=== PATIENT | male | born 1990 | race Hispanic/Latino ===

== ENCOUNTER 2018-05-22 11:32 | Emergency (ER) | payer OTHER ==
[2018-05-22 11:49] VITALS: RESP 18
--- NOTE | 2018-05-22 12:15 | C.PDOC ---
History Of Present Illness 27 y/o male w/o significant PMHx comes in for evaluation of right ankle pain radiating to the right calf area developed since yesterday. Patient reports he was playing basketball when he jumped and landed wrong, probably twisting the ankle. He was seen in urgent care yesterday and given a prescription for MRI but did not have the imaging yet. Otherwise patient denies any obvious deformity , weakness, or sensorivascular deficits. Patient admits he is able to bear weight on the injured foot. Posterior fiber glass splint noted to right lower extremity on arrival. Time Seen by Provider: 05/22/18 11:50 Chief Complaint (Nursing): Lower Extremity Problem/Injury History Per: Patient History/Exam Limitations: no limitations Onset/Duration Of Symptoms: Days Current Symptoms Are (Timing): Still Present Severity: Moderate Pain Scale Rating Of: 5 - Ankle/Foot Description Of Injury: Twisted Past Medical History Reviewed: Historical Data, Nursing Documentation, Vital Signs Vital Signs: Last Vital Signs Temp 97.8 F 05/22/18 14:07 Pulse 65 05/22/18 14:07 Resp 18 05/22/18 14:07 BP 122/78 05/22/18 14:07 Pulse Ox 100 05/22/18 14:07 - Medical History PMH: No Chronic Diseases Surgical History: No Surg Hx Family History: States: No Known Family Hx - Social History Hx Tobacco Use: No Hx Alcohol Use: No Hx Substance Use: No Review Of Systems Except As Marked, All Systems Reviewed And Found Negative. Musculoskeletal: Positive for: Foot Pain (right ankle) Skin: Positive for: Bruising. Negative for: Lesions Neurological: Negative for: Weakness, Numbness, Incoordination Physical Exam - Physical Exam Appears: Well, Non-toxic, No Acute Distress Skin: Normal Color, Warm, No Rash, Ecchymosis (Scant ecchymosis to posterior aspect of right ankle) Head: Atraumatic, Normacephalic Eye(s): bilateral: PERRL Extremity: Normal ROM (with FAROM of RLE with mild discomfort to ankle flexion) , Tenderness (Right ankle with mild tenderness to the posterior aspect and along the Achilles tendon), No Pedal Edema, No Calf Tenderness, Capillary Refill (less than 2sec to RLE), No Deformity, Swelling (slight edema to right posterior ankle), Other (+ Rhoades test Right ankle) Pulses: Left Dorsalis Pedis: Normal, Right Dorsalis Pedis: Normal Neurological/Psych: Oriented x3, Normal Speech, Normal Motor, Normal Sensation, Normal Reflexes ED Course And Treatment O2 Sat by Pulse Oximetry: 97 (RA) Pulse Ox Interpretation: Normal - CT Scan/US CT right lower extrem Other Rad Studies (CT/US): Read By Radiologist, Radiology Report Reviewed CT/US Interpretation: Accession No. : [id number]. Patient Name / ID : GEORGIE OLIVEIRA / [id number]. Exam Date : 05/22/2018 12:35:42 ( Approved ). Study Comment : Sex / Age : M / 27Y. Creator : Yessenia Hunt. Dictator : Marleen Palomino MD. Cost Accounting Clerk : Line Analyst : Marleen Palomino MD. Approver2 : Report Date : 05/22/2018 12:55:44. My Comment : . PROCEDURE: CT scan of the right ankle without contrast. INDICATION: TECHNIQUE: Multiple axial images were obtained with slice thickness of 2.5 mm. Coronal and sagittal reformatted images were obtained. Iterative reconstruction was used. Radiation dose: Total exam DLP = 381.58 mGy-cm. This CT exam was performed using one or more of the following dose reduction techniques: Automated exposure control, adjustment of the mA and/or kV according to patient size, and/or use of iterative reconstruction technique. COMPARISON: None. FINDINGS: Evaluation of the soft tissues is limited on noncontrast CT examination. Allowing for this, there is apparent complete tear of the distal Achilles tendon proximal to its attachment with undulating proximal tendon margin. There is soft tissue swelling and subcutaneous edema in the posterior ankle and heel. The joint spaces are preserved. The ankle mortise is not widened. The sinus tarsi is within normal limits. Bone alignment and mineralization are normal. There is no acute displaced fracture or bone destruction. There is an os trigonum. IMPRESSION: Evaluation of the soft tissues is limited on noncontrast CT examination. Allowing for this, findings are consistent with complete tear of the distal Achilles tendon proximal to its attachment to the calcaneus with undulating proximal margin. Soft tissue swelling and subcutaneous edema in the posterior ankle and heel. No acute fracture or dislocation. Progress Note: CT of the RLE ordered and reviewed. On re-eval, pt is afebrile, hemodynamicaly stable. Non-toxic. RLE: (+) tenderness over posterior aspect Right ankle, (+) Rhoades test, likely Achilles rupture. NO palpabe deformity. No neurovascular deficits. Imaging review (+) complete Achilles rupture. Posterior long leg fiberglass splint re-applied to Right leg, pt has crutches. Advised. ref. to f/u with Ortho in 1-2 days for re-eval and further tx. retrun if any new changes. Disposition Counseled Patient/Family Regarding: Studies Performed, Diagnosis, Need For Followup, Rx Given - Disposition Referrals: Juan Guevara III, MD [Staff Provider] - Disposition: HOME/ ROUTINE Disposition Time: 13:00 Condition: STABLE Additional Instructions: None-weight bearing Take pain medication as prescribed Follow up with Orthopedist in 1-2 days for re-evaluation. return to ED if any worsening or new changes. Prescriptions: traMADol [Ultram] 50 mg PO TID #7 tab Instructions: Achilles Tendon Rupture Forms: [facility] (Italian) - Clinical Impression Clinical Impression: Achilles rupture - PA / TRANSLATOR AND INTERPRETER / Resident Statement MD/DO has reviewed & agrees with the documentation as recorded. - Scribe Statement The provider has reviewed the documentation as recorded by the Scribe (Luz Marina Sharma) All medical record entries made by the Scribe were at my direction and personally dictated by me. I have reviewed the chart and agree that the record accurately reflects my personal performance of the history, physical exam, medical decision making, and the department course for this patient. I have also personally directed, reviewed, and agree with the discharge instructions and disposition.
--- NOTE | 2018-05-22 13:25 | CT ---
PROCEDURE: CT scan of the right ankle without contrast. INDICATION: TECHNIQUE: Multiple axial images were obtained with slice thickness of 2.5 mm. Coronal and sagittal reformatted images were obtained. Iterative reconstruction was used. Radiation dose: Total exam DLP = 381.58 mGy-cm. This CT exam was performed using one or more of the following dose reduction techniques: Automated exposure control, adjustment of the mA and/or kV according to patient size, and/or use of iterative reconstruction technique. COMPARISON: None. FINDINGS: Evaluation of the soft tissues is limited on noncontrast CT examination. Allowing for this, there is apparent complete tear of the distal Achilles tendon proximal to its attachment with undulating proximal tendon margin. There is soft tissue swelling and subcutaneous edema in the posterior ankle and heel. The joint spaces are preserved. The ankle mortise is not widened. The sinus tarsi is within normal limits. Bone alignment and mineralization are normal. There is no acute displaced fracture or bone destruction. There is an os trigonum. IMPRESSION: Evaluation of the soft tissues is limited on noncontrast CT examination. Allowing for this, findings are consistent with complete tear of the distal Achilles tendon proximal to its attachment to the calcaneus with undulating proximal margin. Soft tissue swelling and subcutaneous edema in the posterior ankle and heel. No acute fracture or dislocation.
[2018-05-22 14:09] VITALS: BP 122/78; PULSE 65; TEMP 97.8
[2018-05-22 15:28] VITALS: O2SAT 97
== END 2018-05-22 14:09 | disposition home or self-care (01) ==
LOC: C.ER 11:32
DX: S86.011D Strain of right Achilles tendon, subsequent encounter (principal); X58.XXXD Exposure to other specified factors, subsequent encounter

== ENCOUNTER 2018-06-15 16:44 | Observation (INO) | payer OTHER ==
[2018-06-15] MEDS ORDERED: Enoxaparin 40 mg Syringe SC STA (17:26)
[2018-06-15] MEDS ORDERED: Enoxaparin 80 mg Syringe ONE (17:38)
--- NOTE | 2018-06-15 18:22 | RAD ---
Date of service: 06/15/2018 PROCEDURE: CHEST RADIOGRAPH, 1 VIEW HISTORY: SOB COMPARISON: None available. FINDINGS: LUNGS: Clear. PLEURA: No pneumothorax or pleural fluid seen. CARDIOVASCULAR: Normal. OSSEOUS STRUCTURES: No significant abnormalities. VISUALIZED UPPER ABDOMEN: Normal. OTHER FINDINGS: None. IMPRESSION: No active disease.
[2018-06-15 18:23] LABS: BASO # 0.1 K/uL (0.0-0.2); BASO % 0.6 % (0.0-2.0); EOS # 0.1 K/uL (0.0-0.7); EOS % 1.5 % (0.0-4.0); HEMOGLOBIN 13.1 g/dL (12.0-18.0); LYMPH # 2.2 K/uL (1.0-4.3); LYMPH % 26.4 % (20.0-40.0); MEAN CELL VOLUME 88.9 fL (80.0-94.0); MEAN CORPUSCULAR HEMOGLOBIN 31.2 pg (27.0-31.0); MEAN CORPUSCULAR HGB CONC 35.1 g/dL (33.0-37.0); MEAN PLATELET VOLUME 7.6 fL (7.2-11.7); MONO # 0.6 K/uL (0.0-0.8); MONO % 6.8 % (0.0-10.0); NEUT # 5.5 K/uL (1.8-7.0); NEUT % 64.7 % (50.0-75.0); NRBC % 0.1 % (0.0-2.0); RBC 4.21 Mil/uL (4.40-5.90); WHITE BLOOD COUNT 8.5 K/uL (4.8-10.8)
[2018-06-15 18:31] LABS: INR 1.2; PROTHROMBIN TIME 13.1 SECONDS (9.7-12.2)
[2018-06-15 18:36] LABS: ALB/GLOB RATIO 1.7 (1.0-2.1); ALBUMIN 4.3 g/dL (3.5-5.0); ALT/SGPT 27 U/L (21-72); AST/SGOT 23 U/L (17-59); BLOOD UREA NITROGEN 21 mg/dL (9-20); CALCIUM 9.2 mg/dl (8.6-10.4); GFR AFRICAN-AMERICAN > 60; GFR NON-AFRICAN AMERICAN > 60
--- NOTE | 2018-06-15 18:42 | C.PDOC ---
History Of Present Illness 27 y/o male presents to the ED with ultrasound results showing (+) DVT to the right lower leg, sent in by orthopedic surgeon Dr. Bill. Patient is s/p recent orthopedic repair for ruptured Achilles tendon secondary to playing basketball on 05/22. Denies PMHx of coagulation issues. Patient states he has been wearing a surgical boot since. Denies any associated SOB or palpitations. Time Seen by Provider: 06/15/18 17:04 Chief Complaint (Nursing): Lower Extremity Problem/Injury History Per: Patient History/Exam Limitations: no limitations Onset/Duration Of Symptoms: Hrs Current Symptoms Are (Timing): Still Present Past Medical History Reviewed: Historical Data, Nursing Documentation, Vital Signs Vital Signs: Last Vital Signs Temp 98.5 F 06/15/18 23:19 Pulse 72 06/15/18 23:19 Resp 20 06/15/18 23:19 BP 132/79 06/15/18 23:19 Pulse Ox 97 06/15/18 23:19 - Medical History PMH: No Chronic Diseases Other Surgeries: Right achilles tendon repair 2 weeks ago Family History: States: No Known Family Hx - Social History Hx Tobacco Use: No Hx Alcohol Use: No Hx Substance Use: No Review Of Systems Except As Marked, All Systems Reviewed And Found Negative. Constitutional: Negative for: Fever, Chills Cardiovascular: Negative for: Chest Pain, Palpitations Respiratory: Negative for: Shortness of Breath Musculoskeletal: Positive for: Leg Pain (and (+) DVT). Negative for: Other ( calf swelling) Skin: Negative for: Rash Neurological: Negative for: Numbness, Other (tingling) Physical Exam - Physical Exam Appears: Non-toxic, No Acute Distress Skin: Normal Color, Warm, Dry Head: Atraumatic, Normacephalic Eye(s): bilateral: Normal Inspection Oral Mucosa: Moist Neck: Normal ROM, Supple Chest: Symmetrical Cardiovascular: Rhythm Regular, No Murmur Respiratory: Normal Breath Sounds, No Rales, No Rhonchi, No Wheezing Gastrointestinal/Abdominal: Soft, No Tenderness, No Distention Extremity: Capillary Refill (less than 2 sec to right toes), No Swelling (or significant edema to calf), Other (surgical boot intact to RLE) Neurological/Psych: Oriented x3, Normal Speech, Normal Cranial Nerves ED Course And Treatment - Laboratory Results Result Diagrams: 06/15/18 18:18 06/15/18 18:18 Lab Interpretation: Normal ECG: Interpreted By Me ECG Rhythm: Sinus Rhythm ECG Interpretation: Normal Rate From EC O2 Sat by Pulse Oximetry: 99 (RA) Pulse Ox Interpretation: Normal - Radiology CXR: Read By Radiologist CXR Interpretation: Yes: No Acute Disease Progress Note: lovenox SQ Reevaluation Time: 18:00 Reassessment Condition: Improved Medical Decision Making Medical Decision Making: Impression: Known DVT to RLE Plan: * Labs * EKG * Chest x-ray * Lovenox 80 mg SC Pt will require admission. DVT R lower leg related to recent Orthopedic Surgery for R achilles tendon rupture suffered while playing basketball. Disposition Doctor Will See Patient In The: Hospital Counseled Patient/Family Regarding: Studies Performed, Diagnosis - Disposition Disposition: HOSPITALIZED Disposition Time: 18:00 Condition: GOOD - Clinical Impression Clinical Impression: Deep venous thrombosis of lower extremity - Scribe Statement The provider has reviewed the documentation as recorded by the Scribe (Luz Marina Sharma) Provider Attestation: All medical record entries made by the Scribe were at my direction and personally dictated by me. I have reviewed the chart and agree that the record accurately reflects my personal performance of the history, physical exam, medical decision making, and the department course for this patient. I have also personally directed, reviewed, and agree with the discharge instructions and disposition.
[2018-06-15 18:46] LABS: B-TYPE NATRIURETIC PEPTIDE 52.2 pg/mL (0-450)
[2018-06-15 21:09] VITALS: RESP 20
--- NOTE | 2018-06-15 22:12 | CP.PCM.HP ---
History of Present Illness - History of Present Illness History of Present Illness: 27yo male with a PMH of pre-hypertension presents to the ED with right calf pain described as " tight, pressures and strangled". Recent past history includes a right sided achilles tendon rupture on may 21 and a repair surgery on june 02. On Jun 11 he began to feel pain in his right calf, He went to his Follow up appointment with the orthopaedic surgeon at [facility] in [place] who recommended a doppler study with radiologist Micheal Parham MD on 06/15/18 which showed acute Deep vein thrombosis extending from the peroneal and posterior tibial veins to the superficial femoral vein interiorly. Pt was instructed to present to the ED upon results. ROS: Pos+ recent surgery, Recent travel (2hr car ride), Leg swelling R>L calf. Neg- F/C, visipon changes, SOB, chest pain. sick contacts, abd pain, pain with inspiration PMH: Pre-hypertension PSx: Scaphoid fixation Present on Admission - Present on Admission Any Indicators Present on Admission: Yes History of DVT/PE: Yes History of Uncontrolled Diabetes: No Urinary Catheter: No Decubitus Ulcer Present: No Review of Systems - Constitutional Constitutional: As Per HPI - EENT Eyes: As Per HPI Ears: absent: Dizziness Nose/Mouth/Throat: absent: Dysphagia, Facial Pain - Cardiovascular Cardiovascular: Leg Edema (right leg). absent: Chest Pain, Pain Radiating to Arm/Neck/Jaw, Lightheadedness, Palpitations, Radiating Pain, Syncope - Respiratory Respiratory: As Per HPI - Gastrointestinal Gastrointestinal: As Per HPI - Musculoskeletal Musculoskeletal: absent: Numbness, Stiffness, Tingling - Integumentary Integumentary: Swelling (L calf). absent: Wounds - Neurological Neurological: absent: Focal Weakness, Loss of Vision, Radicular Pain, Syncope, Weakness - Psychiatric Psychiatric: absent: Anxiety, Change in Appetite, Panic Attacks - Endocrine Endocrine: absent: Fatigue, Flushing, Palpitations - Hematologic/Lymphatic Hematologic: absent: Easy Bleeding, Easy Bruising Past Patient History - Infectious Disease Hx of Infectious Diseases: None - Past Social History Smoking Status: Never Smoked - PSYCHIATRIC Hx Substance Use: No - SURGICAL HISTORY Hx Surgeries: Yes Other/Comment: RIGHT ACHILLES TENDOR, RIGHT HAND Meds Home Medications: Home Medication List Medication Instructions Recorded Confirmed Type Rivaroxaban [Xarelto] 15 mg PO DAILY #30 tab 06/16/18 Rx Rivaroxaban [Xarelto] 20 mg PO DAILY #3 tab 06/16/18 Rx Allergies/Adverse Reactions: Allergies Allergy/AdvReac Type Severity Reaction Status Date / Time No Known Allergies Allergy Verified 06/15/18 16:56 Physical Exam - Constitutional Appears: Non-toxic, No Acute Distress - Head Exam Head Exam: ATRAUMATIC, NORMAL INSPECTION - Eye Exam Eye Exam: EOMI, Normal appearance, PERRL. absent: Scleral icterus - ENT Exam ENT Exam: Mucous Membranes Moist - Neck Exam Neck exam: Positive for: Normal Inspection - Respiratory Exam Respiratory Exam: Clear to Auscultation Bilateral, NORMAL BREATHING PATTERN. absent: Rales, Rhonchi, Wheezes - Cardiovascular Exam Cardiovascular Exam: RRR, +S1, +S2 Additional comments: Bilateral Femoral pulses palpated - GI/Abdominal Exam GI & Abdominal Exam: Normal Bowel Sounds, Soft. absent: Distended, Guarding, Tenderness - Extremities Exam Extremities exam: Positive for: calf tenderness (left calf), tenderness (over right achilles tendon), pedal pulses present - Back Exam Back exam: NORMAL INSPECTION - Neurological Exam Neurological exam: Alert, CN II-XII Intact, Oriented x3 - Psychiatric Exam Psychiatric exam: Normal Affect, Normal Mood - Skin Skin Exam: Dry, Normal Color, Warm Results - Vital Signs Recent Vital Signs: Last Vital Signs Temp 98.0 F 06/15/18 20:08 Pulse 77 06/15/18 20:08 Resp 20 06/15/18 20:08 BP 138/79 06/15/18 20:08 Pulse Ox 96 06/15/18 20:08 - Labs Result Diagrams: 06/15/18 18:18 06/15/18 18:18 Labs: Laboratory Results - last 24 hr 06/15/18 06/15/18 06/15/18 18:18 18:18 18:18 WBC 8.5 RBC 4.21 L Hgb 13.1 Hct 37.4 MCV 88.9 MCH 31.2 H MCHC 35.1 RDW 12.0 Plt Count 247 MPV 7.6 Neut % (Auto) 64.7 Lymph % (Auto) 26.4 [place] % (Auto) 6.8 Eos % (Auto) 1.5 Baso % (Auto) 0.6 Neut # (Auto) 5.5 Lymph # (Auto) 2.2 [place] # (Auto) 0.6 Eos # (Auto) 0.1 Baso # (Auto) 0.1 PT 13.1 H INR 1.2 APTT 30 Sodium 142 Potassium 3.9 Chloride 104 Carbon Dioxide 27 Anion Gap 15 BUN 21 H Creatinine 0.8 Est GFR ( Amer) > 60 Est GFR (Non-Af Amer) > 60 Random Glucose 99 Calcium 9.2 Total Bilirubin 0.5 AST 23 ALT 27 Alkaline Phosphatase 55 Troponin I < 0.0120 NT-Pro-B Natriuret Pep 52.2 Total Protein 6.9 Albumin 4.3 Globulin 2.6 Albumin/Globulin Ratio 1.7 Assessment & Plan - Assessment and Plan (Free Text) Assessment: 27 yo male with a PMH of pre-htn admitted with a DVt s/p achilles tendon surgery post op day 12 Plan: DVT: -lovenox 1mg/kg 80 q12 -doppler study appreciated: R inferior superficial femoral artery DVT Pre-HTN -Montior BP Achilles Tendon Rupture -fall precautions PPX: -no gi ppx indicated
[2018-06-15] MEDS ORDERED: Enoxaparin 80 mg Syringe SC SCH (22:30)
[2018-06-16 07:55] VITALS: BP 128/71; PULSE 61; TEMP 98.3; O2SAT 98
[2018-06-16] MEDS ORDERED: Enoxaparin 80 mg Syringe SC SCH (10:00)
[2018-06-16] MEDS ORDERED: Pantoprazole 40 mg EC Tab PO SCH (10:00)
--- NOTE | 2018-06-16 11:13 | CP.PCM.PN ---
Subjective - Date & Time of Evaluation Date of Evaluation: 06/16/18 Time of Evaluation: 10:51 Objective - Vital Signs/Intake and Output Vital Signs (last 24 hours): Temp Pulse Resp BP Pulse Ox 98.3 F 61 20 128/71 98 06/16/18 07:54 06/16/18 07:54 06/16/18 07:54 06/16/18 07:54 06/16/18 07:54 - Medications Medications: Current Medications Enoxaparin Sodium (Lovenox) 80 mg SC Q12H [facility] Last Admin: 06/16/18 09:18 Dose: 80 mg Ketorolac Tromethamine (Toradol) 30 mg IVP Q6 PRN PRN Reason: Pain, severe (8-10) Last Admin: 06/16/18 07:57 Dose: 30 mg Ketorolac Tromethamine (Toradol) 15 mg IVP Q6 PRN PRN Reason: Pain, moderate (4-7) Pantoprazole Sodium (Protonix Ec Tab) 40 mg PO DAILY [facility] Last Admin: 06/16/18 09:18 Dose: 40 mg - Labs Labs: 06/15/18 18:18 06/15/18 18:18 PT 13.1 SECONDS (9.7-12.2) H 06/15/18 18:18 INR 1.2 06/15/18 18:18 APTT 30 SECONDS (21-34) 06/15/18 18:18
--- NOTE | 2018-06-16 14:13 | CP.PCM.DIS ---
Provider - Provider Date of Admission: 06/15/18 17:32 Attending physician: Rasta Oneill Jr, MD Time Spent in preparation of Discharge (in minutes): 45 Diagnosis - Discharge Diagnosis (1) Deep venous thrombosis of lower extremity Status: Acute (2) Achilles rupture Status: Acute Hospital Course - Lab Results Lab Results: Most Recent Lab Values WBC 8.5 K/uL (4.8-10.8) 06/15/18 18:18 RBC 4.21 Mil/uL (4.40-5.90) L 06/15/18 18:18 Hgb 13.1 g/dL (12.0-18.0) 06/15/18 18:18 Hct 37.4 % (35.0-51.0) 06/15/18 18:18 MCV 88.9 fL (80.0-94.0) 06/15/18 18:18 MCH 31.2 pg (27.0-31.0) H 06/15/18 18:18 MCHC 35.1 g/dL (33.0-37.0) 06/15/18 18:18 RDW 12.0 % (11.5-14.5) 06/15/18 18:18 Plt Count 247 K/uL (130-400) 06/15/18 18:18 MPV 7.6 fL (7.2-11.7) 06/15/18 18:18 Neut % (Auto) 64.7 % (50.0-75.0) 06/15/18 18:18 Lymph % (Auto) 26.4 % (20.0-40.0) 06/15/18 18:18 [place] % (Auto) 6.8 % (0.0-10.0) 06/15/18 18:18 Eos % (Auto) 1.5 % (0.0-4.0) 06/15/18 18:18 Baso % (Auto) 0.6 % (0.0-2.0) 06/15/18 18:18 Neut # (Auto) 5.5 K/uL (1.8-7.0) 06/15/18 18:18 Lymph # (Auto) 2.2 K/uL (1.0-4.3) 06/15/18 18:18 [place] # (Auto) 0.6 K/uL (0.0-0.8) 06/15/18 18:18 Eos # (Auto) 0.1 K/uL (0.0-0.7) 06/15/18 18:18 Baso # (Auto) 0.1 K/uL (0.0-0.2) 06/15/18 18:18 PT 13.1 SECONDS (9.7-12.2) H 06/15/18 18:18 INR 1.2 06/15/18 18:18 APTT 30 SECONDS (21-34) 06/15/18 18:18 Sodium 142 mmol/L (132-148) 06/15/18 18:18 Potassium 3.9 mmol/L (3.6-5.2) 06/15/18 18:18 Chloride 104 mmol/L (98-107) 06/15/18 18:18 Carbon Dioxide 27 mmol/L (22-30) 06/15/18 18:18 Anion Gap 15 (10-20) 06/15/18 18:18 BUN 21 mg/dL (9-20) H 06/15/18 18:18 Creatinine 0.8 mg/dL (0.8-1.5) 06/15/18 18:18 Est GFR ( Amer) > 60 06/15/18 18:18 Est GFR (Non-Af Amer) > 60 06/15/18 18:18 Random Glucose 99 mg/dL (75-110) 06/15/18 18:18 Calcium 9.2 mg/dl (8.6-10.4) 06/15/18 18:18 Total Bilirubin 0.5 mg/dL (0.2-1.3) 06/15/18 18:18 AST 23 U/L (17-59) 06/15/18 18:18 ALT 27 U/L (21-72) 06/15/18 18:18 Alkaline Phosphatase 55 U/L (38-126) 06/15/18 18:18 Troponin I < 0.0120 ng/mL (0.00-0.120) 06/15/18 18:18 NT-Pro-B Natriuret Pep 52.2 pg/mL (0-450) 06/15/18 18:18 Total Protein 6.9 g/dL (6.3-8.3) 06/15/18 18:18 Albumin 4.3 g/dL (3.5-5.0) 06/15/18 18:18 Globulin 2.6 gm/dL (2.2-3.9) 06/15/18 18:18 Albumin/Globulin Ratio 1.7 (1.0-2.1) 06/15/18 18:18 - Hospital Course Hospital Course: PMH: Pre-hypertension PSHx: Scaphoid fixation Upon Admission: 27yo male with a PMH of pre-hypertension presents to the ED with right calf pain described as " tight, pressures and strangled". Recent past history includes a right sided achilles tendon rupture on may 21 and a repair surgery on june 02. On Jun 11 he began to feel pain in his right calf, He went to his Follow up appointment with the orthopaedic surgeon at [facility] in [place] who recommended a doppler study with radiologist Micheal Parham MD on 06/15/18 which showed acute Deep vein thrombosis extending from the peroneal and posterior tibial veins to the superficial femoral vein interiorly. Pt was instructed to present to the ED upon results. Hospital Course: Patient is a 27 yo male with PMH pre-hypertension comes to hospital s/p achilles tendon rupture surgery with increased swelling in right lower extremity distal to the knee. Patient went to see orthopedic surgeon to discuss increased swelling; there he was told to get an U/S for possible clot in leg; U/ S showed DVT and surgeon recommended patient come to hospital; treated with Lovenox and discharged with Xarelto 20mg for 3 days followed by Xarelto 15mg for 6 weeks. Discharge Instructions: Patient is stable for discharge to home as per Dr. Oneill. Patient is to followup with primary medical doctor within 1 week of discharge from hospital. Patient is to followup with orthopedic surgeon within 1 week of discharge from hospital. Upon discharge, patient is to take the following medications: Xarelto 20mg by mouth once daily for three days ending (06/19/18) and then should start the Xarelto 15 mg by mouth once daily for 6 weeks. Patient understands he received only 1 month supply and should follow up outpatient with primary medical doctor or orthopedic surgeon to complete the full course of anticoagulation. Patient is instructed to return to the hospital if symptoms recur or worsen including difficulty breathing, chest pain, palpitations. Patient understands and agrees to the plan as outlined above. Disclaimer: Written above is a shorthand version of patient's current admission to the hospital. For a full report, please refer to the EMR. Discharge Exam - Head Exam Head Exam: ATRAUMATIC, NORMAL INSPECTION - Eye Exam Eye Exam: EOMI, Normal appearance. absent: Nystagmus, Scleral icterus Pupil Exam: NORMAL ACCOMODATION - ENT Exam ENT Exam: Mucous Membranes Moist, Normal Exam - Respiratory Exam Respiratory Exam: Clear to PA & Lateral, NORMAL BREATHING PATTERN. absent: Decreased Breath Sounds, Wheezes, Respiratory Distress - Cardiovascular Exam Cardiovascular Exam: REGULAR RHYTHM, +S1, +S2. absent: Tachycardia, JVD - GI/Abdominal Exam GI & Abdominal Exam: Normal Bowel Sounds, Soft. absent: Distended, Firm, Guarding, Tenderness - Back Exam Back exam: NORMAL INSPECTION. absent: CVA tenderness (L), CVA tenderness (R) - Neurological Exam Neurological exam: Alert, Oriented x3 - Psychiatric Exam Psychiatric exam: Normal Affect, Normal Mood - Skin Skin Exam: Normal Color, Warm Discharge Plan - Discharge Medications Prescriptions: Rivaroxaban [Xarelto] 15 mg PO DAILY #30 tab Rivaroxaban [Xarelto] 20 mg PO DAILY #3 tab - Follow Up Plan Condition: GOOD Disposition: HOME/ ROUTINE Instructions: Rivaroxaban, Deep Vein Thrombosis (Blood Clots in the Legs) (DC) Additional Instructions: Patient is stable for discharge to home as per Dr. Oneill. Patient is to followup with primary medical doctor within 1 week of discharge from hospital. Patient is to followup with orthopedic surgeon within 1 week of discharge from hospital. Upon discharge, patient is to take the following medications: Xarelto 20mg by mouth once daily for three days ending (06/19/18) and then should start the Xarelto 15 mg by mouth once daily for 6 weeks. Patient understands he received only 1 month supply and should follow up outpatient with primary medical doctor or orthopedic surgeon to complete the full course of anticoagulation. Patient is instructed to return to the hospital if symptoms recur or worsen including difficulty breathing, chest pain, palpitations. Patient understands and agrees to the plan as outlined above. Referrals: Rasta Oneill Jr., MD [Medical Doctor] -
== END 2018-06-16 15:58 | disposition home or self-care (01) ==
LOC: C.ER 16:44 → C.9E 17:32 → C.3T 20:01
PROVIDERS: ADMIT Internal Medicine; ATTEND Internal Medicine
DX: I82.4Z1 Acute embolism and thrombosis of unspecified deep veins of right distal lower extremity (principal); I10 Essential (primary) hypertension; Z79.01 Long term (current) use of anticoagulants; Z98.890 Other specified postprocedural states
CPT/HCPCS: 71045; 80053; 83880; 84484; 85025; 85610; 85730; 93005; 96372; 99285; G0378; J1644; J1650; J1885